=== PATIENT | male | born 1995 | race Caucasian/White ===

== ENCOUNTER 2016-12-09 08:19 | Outpatient (CLI) | payer MEDICAID | END 2016-12-09 08:20 | disposition home or self-care (01) | DX: E01.0 Iodine-deficiency related diffuse (endemic) goiter (principal) ==

== ENCOUNTER 2017-05-27 08:00 | Outpatient (CLI) | payer MEDICAID ==
[2017-05-27 19:35] LABS: THYROID STIMULATING HORMONE 4.45 uIU/mL (0.34-5.60)
== END 2017-05-27 08:01 | disposition home or self-care (01) ==
LOC: LAB.WCP 08:00
PROVIDERS: ATTEND Physician Assistant Medical
DX: E03.9 Hypothyroidism, unspecified (principal)
CPT/HCPCS: 36415; 84439; 84443

== ENCOUNTER 2022-09-23 15:11 | Outpatient (CLI) | payer MEDICAID | END 2022-09-23 15:12 | disposition home or self-care (01) | LOC: SC 15:11 | PROVIDERS: ATTEND Nurse Practitioner Family | DX: I10 Essential (primary) hypertension (principal); R41.89 Other symptoms and signs involving cognitive functions and awareness; G47.33 Obstructive sleep apnea (adult) (pediatric); R09.02 Hypoxemia | CPT/HCPCS: 95806 ==

== ENCOUNTER 2022-10-01 12:49 | Outpatient (CLI) | payer MEDICAID ==
--- NOTE | 2022-10-01 13:23 | SLEEP CARE CONSULTATION ---
Information from patient questionnaire entered by Bibi Marquez. I have reviewed and concur with the information entered by Bibi Marquez. This document represents the service I personally performed and the decisions made by me, Shavonne Victoria ARNP. History of Present Illness Service Date and Time: 10/01/2022 1249 Initial [place] Sleepiness Scale score: 13 (09/03/22) Current [place] Sleepiness Scale score: 14 (10/01/22) Additional HPI information: DANNY EMERY returns for follow up and results of the recently performed home sleep study. I explained the pathophysiology behind obstructive sleep apnea. We then spent quite a bit of time discussing different treatment options. For mild obstructive sleep apnea, surgery and oral appliance are alternatives to nasal CPAP therapy but in moderate or severe cases, nasal CPAP is the most effective and reliable treatment. I reviewed the impact of weight changes on sleep apnea and strongly recommended losing weight. After some discussion, the patient opted to go with the nasal CPAP therapy. Nasal autoCPAP set at 4-15 cmH20 will be ordered with rationale explained. A manual titration study will be ordered if unable to find optimal pressure with office adjustments. I explained how CPAP machine works and what to expect when using the machine. Using CPAP every night in order to get used to it was emphasized. Patient advised to put CPAP mask on before getting into bed so as not to fall asleep without CPAP. To assist acclimation to CPAP use, it could also be used for a short time during day while reading or watching TV. The patient was instructed to call the CPAP supplier to discuss any mechanical problem that may occur. If the mask given is uncomfortable or is difficult to keep on through the night even with adjustment, contact the CPAP supplier as many will replace with another mask style if notified before 30 days. If snoring or perceives is not getting enough air or too much air from the machine, notify this office. Patient counseled not drink alcohol less than 4 hours before bedtime as it can increase snoring and apnea. Patient was cautioned about risks of drowsy driving until sleepiness symptoms resolve. Patient does not drive. Sleep Study - Results Type of Sleep Study: Home sleep study (COMPLETED 09-23-22) Prior sleep studies: No Polysomnography/Home Sleep Study results: Physician Impression: The quality of the study is fair-to-=poor due to partial loss of pulse oximetry signal. The length of the study is adequate (> 240 minutes). Please also see the tabulated and graphic data. 1. Obstructive Sleep Apnea-Hypopnea (ICD-10 G47.33), mild, with an AHI of 11.5/hr and jah SaO2 of 82%. During the study, the patient had 3 apneas (3 obstructive, 0 central, 0 mixed) and 41 hypopneas. The longest episode lasted 137.0 seconds. The respiratory events occurred independently of sleep stage and body position (supine AHI was 11.1 and non-supine, 11.54). 2. Hypoxemia (ICD-10 R09.02), mild, with the lowest oxygen saturation of 82 % and 77.2 minutes with SaO2 under 90%. Baseline oxygen saturation was normal (Average oxygen saturation was 91%). Allergies and Home Medications Drug allergies reviewed: Yes (NKDA) Home medication list reviewed: Yes (no changes) Review of Systems Review of systems same as previous: Yes (no changes) Physical Exam Vital signs obtained and entered by: BIBI Will MA Blood Pressure: 126/80 (LEFT ARM) Cuff size: regular Heart Rate: 94 O2 Saturation: 96 Height: 6 ft 2 in Weight: 390 lb Body Mass Index: 50.1 BMI Classification: Morbidly Obese Impression and Plan 1. Obstructive Sleep Apnea-Hypopnea Syndrome, mild, with lowest oxygen saturation of 82%. Obviously this is the cause of the patients symptoms of unrefreshed sleep, and excessive daytime sleepiness. Positive pressure therapy could benefit hypertension, anxiety and attention deficit. As mentioned above, the patient will be started on nasal autoCPAP therapy with pressure set at 4-15 cmH2O. Compliance guidelines also reviewed. A copy of compliance guidelines will be given for reference at check out. 2. Hypoxemia, mild, with the lowest oxygen saturation of 82 % and 77.2 minutes with SaO2 under 90%. His baseline oxygen saturation was normal with an average oxygen saturation of 91%. * Nasal auto CPAP therapy, pressure at 4-15 cm H2O. * Attempt to lose weight. * Avoid alcohol consumption near bedtime. * Avoid supine sleep until using CPAP. * The patient is again cautioned about driving until sleepiness completely resolves. * Return one month after CPAP obtained. I will assess response to therapy and compliance at that time. Counseling Topics: Weight loss health impact Visit Type: In Office Time Spent with Patient (minutes): 20 Provider Statement: I spent 100% of the Face to Face Visit with the patient with greater than 50% spent counseling the patient and coordination of care.
[2022-10-01 13:27] VITALS: BP 126/80
== END 2022-10-01 12:50 | disposition home or self-care (01) ==
LOC: SC 12:49
PROVIDERS: ATTEND Nurse Practitioner Family
DX: G47.33 Obstructive sleep apnea (adult) (pediatric) (principal); E66.01 Morbid (severe) obesity due to excess calories; Z68.43 Body mass index [BMI] 50.0-59.9, adult
CPT/HCPCS: 99212; 99213

== ENCOUNTER 2022-10-17 08:43 | Outpatient (CLI) | payer MEDICAID ==
[2022-10-17 09:21] LABS: BASOPHILS # (AUTO) 0.2 10^3/uL (0.0-0.1); BASOPHILS % (AUTO) 1.7 %; EOSINOPHILS # (AUTO) 0.5 10^3/uL (0.0-0.7); EOSINOPHILS % (AUTO) 5.1 %; HGB - HEMOGLOBIN 15.1 g/dL (14.0-18.0); LYMPHOCYTES # (AUTO) 2.8 10^3/uL (1.5-3.5); LYMPHOCYTES % (AUTO) 28.8 %; MEAN CORPUSCULAR HEMOGLOBIN 27.2 pg (27.0-31.0); MEAN CORPUSCULAR HGB CONC 32.1 g/dL (32.0-36.0); MEAN CORPUSCULAR VOLUME 84.5 fL (80.0-94.0); MEAN PLATELET VOLUME 10.5 fL (7.4-11.4); MONOCYTES # (AUTO) 0.8 10^3/uL (0.0-1.0); MONOCYTES % (AUTO) 8.7 %; NEUTROPHILS # (AUTO) 5.3 10^3/uL (1.5-6.6); NEUTROPHILS % (AUTO) 55.3 %; PLT - PLATELET COUNT 283 10^3/uL (130-450); RED BLOOD COUNT 5.56 10^6/uL (4.70-6.10); RED CELL DISTRIBUTION WIDTH 13.6 % (12.0-15.0); WHITE BLOOD COUNT 9.5 x10^3/uL (4.8-10.8)
[2022-10-17 09:40] LABS: ALBUMIN 4.4 g/dL (3.2-5.5); ALBUMIN/GLOBULIN RATIO 1.2 (1.0-2.2); ALKALINE PHOSPHATASE 64 IU/L (42-121); ALT ALANINE AMINOTRANSFERASE 33 IU/L (10-60); AST ASPARTATE AMINOTRANSFERASE 21 IU/L (10-42); BILIRUBIN,TOTAL 0.9 mg/dL (0.2-1.0); BUN - BLOOD UREA NITROGEN 11 mg/dL (6-20); CALCIUM 9.1 mg/dL (8.5-10.3); CARBON DIOXIDE - CO2 25 mmol/L (21-32); CHLORIDE 102 mmol/L (101-111); CHOL/HDL RATIO 4.6 (<5.0); CHOLESTEROL 180 mg/dL; CREATININE 0.7 mg/dL (0.6-1.2); GFR - MDRD 133 (>89); GLUCOSE 105 mg/dL (70-100); HDL CHOLESTEROL 39 mg/dL; LDL CHOLESTEROL,CALCULATED 117 mg/dL; POTASSIUM 3.4 mmol/L (3.5-5.0); SODIUM 136 mmol/L (135-145); TOTAL PROTEIN 8.2 g/dL (6.7-8.2); TRIGLYCERIDES 118 mg/dL; VLDL CHOLESTEROL 24 mg/dL
[2022-10-17 09:52] LABS: THYROID STIMULATING HORMONE 11.11 uIU/mL (0.34-5.60)
[2022-10-17 10:09] LABS: ESTIMATED AVERAGE GLUCOSE 103 mg/dL (70-100); HEMOGLOBIN A1c% 5.2 % (4.27-6.07)
[2022-10-17 10:28] LABS: FREE T4 (FREE THYROXINE) 1.02 ng/dL (0.58-1.64)
--- NOTE | 2022-10-17 15:27 | XRAY Report ---
PROCEDURE: Ankle 3 View RT INDICATIONS: ANKLE PAIN TECHNIQUE: 3 views of the ankle were acquired. COMPARISON: None FINDINGS: Bones: No fractures or dislocations. Ankle mortise is normally aligned. No suspicious bony lesions . Soft tissues: No tibiotalar joint effusion. Achilles tendon appears normal. IMPRESSION: No visualized acute fracture or dislocation. However, occult injury cannot be excluded. Recommend short interval imaging follow-up in 7-10 days as clinically indicated for additional evalua tion. Reviewed by: Rosalba Schwab MD on 10/17/2022 3:[address] [facility] Approved by: Rosalba Schwab MD on 10/17/2022 3:[address] [facility] Station ID: [id number]
== END 2022-10-17 08:44 | disposition home or self-care (01) ==
LOC: LAB 08:43
PROVIDERS: ATTEND Physician Assistant
DX: M25.571 Pain in right ankle and joints of right foot (principal); E66.01 Morbid (severe) obesity due to excess calories; E03.8 Other specified hypothyroidism
CPT/HCPCS: 36415; 80050; 80061; 83036; 83721; 84439

== ENCOUNTER 2022-12-16 10:29 | Outpatient (CLI) | payer MEDICAID ==
--- NOTE | 2022-12-16 11:00 | XRAY Report ---
PROCEDURE: Foot 3 View RT INDICATIONS: WT FOOT PAIN RIGHT TECHNIQUE: 3 views of the foot were acquired. COMPARISON: None. FINDINGS: Bones: No displaced fracture or dislocation. No significant/high-grade degenerative changes. Plantar enthesopathy. Soft tissues: No suspicious calcifications. IMPRESSION: No acute osseous abnormality. There is plantar enthesopathy, sometimes seen in the setting of plantar fasciitis. If there is high concern for further derangement, consider MRI evaluation. Reviewed by: Clif Payan MD on 12/16/2022 10:59 AM PDT Approved by: Clif Payan MD on 12/16/2022 10:59 AM PDT Station ID: [id number]
== END 2022-12-16 10:30 | disposition home or self-care (01) ==
LOC: DI 10:29
PROVIDERS: ATTEND Physician Assistant
DX: M77.51 Other enthesopathy of right foot and ankle (principal)

== ENCOUNTER 2023-04-22 08:47 | Outpatient (CLI) | payer MEDICAID ==
--- NOTE | 2023-04-22 10:55 | XRAY Report ---
PROCEDURE: Wrist 3 View RT INDICATIONS: WRIST PAIN, RIGHT TECHNIQUE: 3 views of the wrist were acquired. COMPARISON: None. FINDINGS: Bones: No displaced fracture or dislocation is identified. Soft tissues: No suspicious calcifications. IMPRESSION: No acute radiographic abnormality. If there is high concern for further derangement, consider MRI randi luation. Reviewed by: Clif Payan MD on 04/22/2023 10:54 AM PDT Approved by: Clif Payan MD on 04/22/2023 10:54 AM PDT Station ID: [id number]
== END 2023-04-22 08:48 | disposition home or self-care (01) ==
LOC: DI 08:47
PROVIDERS: ATTEND Physician Assistant
DX: M25.531 Pain in right wrist (principal)

== ENCOUNTER 2023-07-14 09:45 | Outpatient (CLI) | payer MEDICAID ==
[2023-07-14 13:28] LABS: THYROID STIMULATING HORMONE 5.19 uIU/mL (0.34-5.60)
== END 2023-07-14 09:46 | disposition home or self-care (01) ==
LOC: LAB.N 09:45
PROVIDERS: ATTEND Physician Assistant
DX: E03.9 Hypothyroidism, unspecified (principal)
CPT/HCPCS: 36415; 84439; 84443; 84481

== ENCOUNTER 2023-09-26 10:29 | Outpatient (CLI) | payer MEDICAID | END 2023-09-26 10:30 | disposition home or self-care (01) | LOC: NS 10:29 | PROVIDERS: ATTEND Physician Assistant | DX: Z71.3 Dietary counseling and surveillance (principal); E66.01 Morbid (severe) obesity due to excess calories; Z68.42 Body mass index [BMI] 45.0-49.9, adult | CPT/HCPCS: 97802 ==

== ENCOUNTER 2023-10-14 10:56 | Outpatient (CLI) | payer MEDICAID | END 2023-10-14 10:57 | disposition home or self-care (01) | LOC: NS 10:56 | PROVIDERS: ATTEND Physician Assistant | DX: Z71.3 Dietary counseling and surveillance (principal); E66.01 Morbid (severe) obesity due to excess calories; Z68.42 Body mass index [BMI] 45.0-49.9, adult | CPT/HCPCS: 97803 ==

== ENCOUNTER 2023-11-04 10:54 | Outpatient (CLI) | payer MEDICAID | END 2023-11-04 10:55 | disposition home or self-care (01) | LOC: NS 10:54 | PROVIDERS: ATTEND Physician Assistant | DX: Z71.3 Dietary counseling and surveillance (principal); E66.01 Morbid (severe) obesity due to excess calories; Z68.42 Body mass index [BMI] 45.0-49.9, adult | CPT/HCPCS: 97803 ==

== ENCOUNTER 2024-01-30 10:19 | Outpatient (CLI) | payer MEDICAID | END 2024-01-30 10:20 | disposition home or self-care (01) | LOC: NS 10:19 | PROVIDERS: ATTEND Physician Assistant | DX: Z71.3 Dietary counseling and surveillance (principal); E66.01 Morbid (severe) obesity due to excess calories; Z68.43 Body mass index [BMI] 50.0-59.9, adult | CPT/HCPCS: 97803 ==